=== PATIENT | female | born 1945 | race Caucasian/White ===

== ENCOUNTER → 2017-03-28 | Outpatient (CLI) | payer MEDICARE | LOC: M.ULTRA 13:00 | DX: I73.9 Peripheral vascular disease, unspecified (principal) ==

== ENCOUNTER → 2017-04-17 | Outpatient (CLI) | payer MEDICARE | LOC: M.ULTRA 04-05 10:34 | DX: I73.9 Peripheral vascular disease, unspecified (principal); G45.8 Other transient cerebral ischemic attacks and related syndromes ==

== ENCOUNTER → 2018-02-27 | Outpatient (CLI) | payer MEDICARE | LOC: M.RAD 14:14 | DX: M85.89 Other specified disorders of bone density and structure, multiple sites (principal); Z78.0 Asymptomatic menopausal state ==